=== PATIENT | female | born 1960 | race Caucasian/White ===

== ENCOUNTER 2023-03-30 11:32 | Outpatient (CLI) | payer OTHER, SELFPAY ==
--- NOTE | 2023-03-30 15:51 | ECG_ITS ---
Measurements Intervals [place] Rate: 93 P: 77 KS: 160 QRS: 29 QRSD: 104 T: 41 QT: 360 QTc: 450 Interpretive Statements SINUS RHYTHM LOW QRS VOLTAGE IN PRECORDIAL LEADS BASELINE ARTIFACT- I, II, III, AVR, AVL, AVF BORDERLINE ECG NO PREVIOUS ECG AVAILABLE FOR COMPARISON Electronically Signed On 03-31-2023 6:40:22 CDT by Devendra Cárdenas D.O.
[2023-03-30 16:24] LABS: Hematocrit 38.7 % (37.0-47.0); Hemoglobin 12.6 g/dL (12.0-15.0); Immature Granulocyte Percent A 0.2 % (0-0.5); Mean Corpuscular HGB Conc 32.6 g/dl (32-36); Mean Corpuscular Hemoglobin 29.9 pg (26-34); Mean Corpuscular Volume 91.7 fl (80-100); Mean Platelet Volume 9.2 fl (7.4-10.4); Neutrophils Percent Auto 47.5 % (45.5-73.1); Platelet Count Result 208 k/mm3 (150-375); Red Blood Count 4.22 M/mm3 (4.2-5.4); Red Cell Distribution Width 13.3 % (11.5-14.5); White Blood Count 4.7 K/mm3 (4.5-10.0)
[2023-03-30 16:25] LABS: Basophils Percent Auto 0.4 % (0.2-1.2); Eosinophils Absolute Auto 0.1 K/mm3 (0-0.3); Eosinophils Percent Auto 2.6 % (0-4.4); Immature Granulocyte Absolute 0.01 K/mm3 (0.00-0.031); Lymphocytes Absolute Auto 1.96 K/mm3 (0.9-3.2); Monocytes Absolute Auto 0.3 K/mm3 (0.1-0.6); Monocytes Percent Auto 7.3 % (2.6-8.5); Neutrophils Absolute Auto 2.2 K/mm3 (1.3-6.7)
[2023-03-30 16:37] LABS: Alanine Aminotransferase 30 U/L (6-35); Alkaline Phosphatase 80 U/L (38-126); Amylase 54 U/L (30-110); Aspartate Amino Transferase 24 U/L (14-36); Bilirubin,Total 0.2 mg/dL (0.2-1.3); Lipase 90 U/L (23-300)
[2023-03-30 16:40] LABS: Alanine Aminotransferase 28 U/L (6-35); Albumin Level 3.9 g/dL (3.5-5.1); Alkaline Phosphatase 81 U/L (38-126); Anion Gap 7 mmol/L (8-16); Aspartate Amino Transferase 25 U/L (14-36); Bilirubin,Total 0.2 mg/dL (0.2-1.3); Blood Urea Nitrogen 11 mg/dL (7-17); Calcium 8.5 mg/dL (8.4-10.2); Carbon Dioxide 30 mmol/L (22-30); Chloride 102 mmol/L (98-107); Estimated Glomerular Filt Rate > 60; Glucose 122 mg/dL (65-110); Potassium 3.6 mmol/L (3.4-5.0); Sodium 139 mmol/L (137-145)
== END 2023-03-30 11:33 | disposition home or self-care (01) ==
PROVIDERS: Surgery; PCP Physician Assistant; Visit Provider Obstetrics & Gynecology
DX: Z01.812 Encounter for preprocedural laboratory examination (principal); Z01.810 Encounter for preprocedural cardiovascular examination; D25.9 Leiomyoma of uterus, unspecified; Z72.0 Tobacco use; K80.20 Calculus of gallbladder without cholecystitis without obstruction; Z78.0 Asymptomatic menopausal state
CPT/HCPCS: 36415; 80053; 80076; 82150; 83690; 85025; 86850; 86900; 86901; 93005

== ENCOUNTER 2023-04-04 00:32 | Day surgery (SDC) | payer OTHER, SELFPAY ==
[2023-03-27 16:06] VITALS: BMI 27.8
--- NOTE | 2023-03-27 16:18 | PC.NURSE ---
Report to the Outpatient Waiting Room, entrance under the green pavilion located off [facility], at time 6:00 on date 04/04/23. Planned Procedure Time: 7:30. Time changes happen often and if your time is changed the preop area will call you the afternoon before. - You and your visitor will be asked to self-screen and do not enter if you have any COVID symptoms. - A mask is optional within the hospital at this time. Patients may have clear liquids (water, carbonated beverages, clear teas, apple juice) until 3 hours prior to surgery with (4:30) a maximum of 20 ounces. - No food from midnight until time of surgery Take the following medications with a SIP of water the morning of surgery: ALPRAZOLAM OR DIAZEPAM IF NEEDED DO NOT STOP ANY OF YOUR OTHER PRESCRIPTION MEDICATIONS PRIOR TO SURGERY ?EXCEPT THE FOLLOWING Medications to discontinue per physician: PLAVIX Date to take last dose: 03/29/[address] DIAL REGARDING ASPIRIN AND TORADOL Please no make-up, nail kinyarwanda, hairspray, perfume, deodorant, or body powder the day of surgery. No jewelry (including any body piercings) or valuables the day of surgery, leave them at home. Please take a shower or bath the night before, or the morning of, surgery with an antibacterial soap (HIBICLENS). Wear comfortable, loose fitting clothing. - Jewelry must be removed prior to entering the operating room. Rings and piercings that are not removed may be cut off. - The hospital will not accept responsibility for valuables. - Please leave all valuables, including medications, at home the day of surgery. If you are going home after surgery, a licensed electric train driver must drive you home. - NO public transportation without another adult if you receive anesthesia. - We recommend that an adult stay with you for 24 hours following discharge. - We also recommend that you do not drive, make important decision, drink alcoholic beverages, or take any drugs that were not prescribed by your health care provider for at least 24 hours after your discharge time. Follow any additional instructions given to you from your surgeon. If you or anyone in your household have experienced Covid symptoms in the past week, please notify your surgeon or the nurse liaison at the phone number below for possible testing. Telephone instructions given to PT - PENNY CHAKRABORTY and asked if any additional questions and then verbalized understanding. Patient advised to call surgeon office or pre surgery nurse liaison [phone] if any additional questions.
[2023-04-04] VITALS (9 sets, daily range): BP systolic 112–148; BP diastolic 43–82; PULSE 81–111; RESP 15–20; TEMP 36.2–37.1; O2SAT 92–100
--- NOTE | 2023-04-04 06:51 | WPDANESEPPF ---
Anes - Initial Pre Proc Eval Procedure: Operation Date: 04/04/23 07:30 Proposed Procedures p Total Laparoscopic Hysterectomy with Bilateral Salpingectomy - Tiffany Cohen MD s Laparoscopic Cholecystectomy, Possible Open - Jaleel Iyer DO Date/Time: 04/04/23 06:51 Surgeon: Tiffany Cohen MD Pre Op Diagnosis: uterine leiomyoma, sympt cholelithiasis Patient Data Age: 62 Gender: F Height: 1.64 m Weight: 74.85 kg Allergies Allergy/AdvReac Type Severity Reaction Status Date / Time cephalexin [From Keflex] Allergy Intermediate Nausea Verified 03/27/23 16:00 bacitracin Allergy Unknown Other Verified 03/27/23 16:00 neomycin Allergy Unknown Other Unverified 03/27/23 16:00 polymyxin B Allergy Unknown Other Verified 03/27/23 16:00 meperidine [From Demerol] Allergy Other Verified 03/27/23 16:01 codeine AdvReac Intermediate Nausea Verified 03/27/23 16:01 morphine AdvReac Itching Verified 03/27/23 16:01 [From Duramorph (PF)] Home Medications Medication Instructions Recorded Confirmed Type alprazolam 0.25 mg tablet 0.25 mg PO DAILY 02/21/23 03/27/23 History aspirin 81 mg chewable tablet 81 mg PO DAILY 02/21/23 03/27/23 History clopidogrel 75 mg tablet 75 mg PO DAILY 02/21/23 03/27/23 History cyclobenzaprine 10 mg tablet 10 mg PO TID 02/21/23 03/27/23 History diazepam 5 mg tablet 5 mg PO QHS PRN Anxiety 02/21/23 03/27/23 History duloxetine 30 mg capsule,delayed 60 mg PO HS 02/21/23 03/27/23 History release escitalopram oxalate 20 mg tablet 40 mg PO HS 02/21/23 03/27/23 History ketorolac 10 mg tablet 10 mg PO QID PRN Pain 02/21/23 03/27/23 History lactobacillus combination no.4 3 3,000 mmu cells PO DAILY 02/21/23 03/27/23 History billion cell capsule (Probiotic) levothyroxine 125 mcg capsule 125 mcg PO HS 02/21/23 03/27/23 History multivitamin 1 tablet PO DAILY 02/21/23 03/27/23 History ondansetron 4 mg disintegrating 4 mg PO Q8H 02/21/23 03/27/23 History tablet Patient hx anesthesia problems: none Family hx anesthesia problems: none Results Review: All pre-operative results and documents have been reviewed as part of the pre-operative evaluation. [facility] Past Medical History Medical History Depression Emphysema lung High cholesterol Thyroid disease Surgical History Surgical History S/P S/P endometrial ablation S/P hemorrhoidectomy Family History Family History Mother Family history of lung cancer, Onset Age: 79 Family history of malignant neoplasm of breast in first degree relative, Onset Age: 77 Father Family history of coronary artery disease, Onset Age: 63 Grandparent Family history of coronary artery disease, Onset Age: 50 Unknown Diabetes mellitus Heart disease Hypertension Cancer Other Family history of pancreatic disease Social History Social History Smoking packs per day: 2 Smoking cigarettes per day: 40.0 Years smoked: 40 Smoking pack-years: 80.00 Smoking status: Current every day smoker Tobacco type: cigarettes Second hand tobacco smoke exposure: Yes Alcohol intake: current Drinks per week: 1 Substance use: never Substance use type: does not use Living arrangements: with family Additional living arrangements comments: SON Spiritual care concerns: No Anes - Eval Final PreProcedure Day of Procedure 04/04/23 06:51 Patient weight: overweight Heart: regular rate and rhythm Lungs: clear to auscultation Airway: Mallampati scale class II Neurological: alert and oriented Last oral intake: >/= 8 hours ASA classification: III Emergent: no Anesthetic plan: proceed Anesthesia type and monitoring: general ETT and standard monitoring Results Review: All pre-operative results and documents have been revie
--- NOTE | 2023-04-04 07:15 | PM.IMHP ---
H&P: HPI History of Present Illness Date/Time: 04/04/23 07:15 Chief Complaint: cholelithiasis Narrative: 62 yo woman presents for laparoscopic cholecystectomy. She reports no changes since last seen in office. Review of Systems Review of Systems: All systems reviewed & are unremarkable except as noted in HPI and below Constitutional: Constitutional: Denies chills, Denies fever(s), Denies headache(s) and Denies weight loss Eyes: Eyes: Denies change in vision ENT: Denies dizziness, Denies headache(s), Denies neck mass and Denies throat swelling Cardiovascular: Cardiovascular: Denies chest pain, Denies lightheadedness and Denies dyspnea Respiratory: Respiratory: Denies cough, Denies dyspnea and Denies wheezing Gastrointestinal: Gastrointestinal: Denies abdominal pain, Denies change in bowel habits, Denies nausea and Denies vomiting Genitourinary: Genitourinary: Denies hematuria and Denies dysuria Musculoskeletal: Musculoskeletal: Reports as per HPI Integumentary/Breasts: Skin/Breast: Reports as per HPI Neurologic: Denies dizziness and Denies headache(s) Allergic/Immunologic: Allergic/Immunologic: Denies throat swelling and Denies wheezing [facility] Past Medical History Medical History Depression Emphysema lung High cholesterol Thyroid disease Surgical History Surgical History S/P S/P endometrial ablation S/P hemorrhoidectomy Family History Family History Mother Family history of lung cancer, Onset Age: 79 Family history of malignant neoplasm of breast in first degree relative, Onset Age: 77 Father Family history of coronary artery disease, Onset Age: 63 Grandparent Family history of coronary artery disease, Onset Age: 50 Unknown Diabetes mellitus Heart disease Hypertension Cancer Other Family history of pancreatic disease Social History Social History Smoking packs per day: 2 Smoking cigarettes per day: 40.0 Years smoked: 40 Smoking pack-years: 80.00 Smoking status: Current every day smoker Tobacco type: cigarettes Second hand tobacco smoke exposure: Yes Alcohol intake: current Drinks per week: 1 Substance use: never Substance use type: does not use Living arrangements: with family Additional living arrangements comments: SON Spiritual care concerns: No Meds Home Medications and Allergies Home Medications Medication Instructions Recorded Confirmed Type alprazolam 0.25 mg tablet 0.25 mg PO DAILY 02/21/23 04/04/23 History aspirin 81 mg chewable tablet 81 mg PO DAILY 02/21/23 04/04/23 History clopidogrel 75 mg tablet 75 mg PO DAILY 02/21/23 04/04/23 History cyclobenzaprine 10 mg tablet 10 mg PO TID 02/21/23 04/04/23 History diazepam 5 mg tablet 5 mg PO QHS PRN Anxiety 02/21/23 04/04/23 History duloxetine 30 mg capsule,delayed 60 mg PO HS 02/21/23 04/04/23 History release escitalopram oxalate 20 mg tablet 40 mg PO HS 02/21/23 04/04/23 History ketorolac 10 mg tablet 10 mg PO QID PRN Pain 02/21/23 04/04/23 History lactobacillus combination no.4 3 3,000 mmu cells PO DAILY 02/21/23 04/04/23 History billion cell capsule (Probiotic) levothyroxine 125 mcg capsule 125 mcg PO HS 02/21/23 04/04/23 History multivitamin 1 tablet PO DAILY 02/21/23 04/04/23 History ondansetron 4 mg disintegrating 4 mg PO Q8H 02/21/23 04/04/23 History tablet Allergies Allergy/AdvReac Type Severity Reaction Status Date / Time cephalexin [From Keflex] Allergy Intermediate Nausea Verified 04/04/23 06:58 bacitracin Allergy Unknown Other Verified 04/04/23 06:58 neomycin Allergy Unknown Other Verified 04/04/23 06:58 polymyxin B Allergy Unknown Other Verified 04/04/23 06:58 meperidine [From Demerol] Allergy Other Verified 04/04/23 06:58 codeine AdvReac
--- NOTE | 2023-04-04 07:16 | WPDHPUPDATE1 ---
History and Physical Update Update Date/Time: 04/04/23 07:16 History and Physical has been reviewed, including an updated exam of the patient. There are NO changes in the patient's condition. Risks, benefits, and alternatives have been discussed and questions answered. Patient agrees to proceed with procedure.
--- NOTE | 2023-04-04 07:18 | WPDHPUPDATE1 ---
History and Physical Update Update Date/Time: 04/04/23 07:18 History and Physical has been reviewed, including an updated exam of the patient. There are NO changes in the patient's condition. Risks, benefits, and alternatives have been discussed and questions answered. Patient agrees to proceed with procedure.
[2023-04-04] MEDS: ACETAMINOPHEN 500 MG TABLET 1000 MG PO (07:27)
[2023-04-04] MEDS: KETOROLAC 15 MG/ML VIAL (*BKC) IV PUSH (07:28)
[2023-04-04] MEDS: LACTATED RINGERS 1,000 ML 30 ML IV CONT ×2 (07:29→10:09)
[2023-04-04] MEDS: ceFAZolin 2 GM/D5W 50 ML 2 GM/50 ML BAG IVPB (07:30)
[2023-04-04] MEDS: ceFAZolin SODIUM 1 GM VIAL (09:00)
--- NOTE | 2023-04-04 09:47 | W.PM.PROC2 ---
Procedure Note - Detailed Date of Procedure 04/04/23 Pre-op Diagnosis uterine leiomyoma, sympt cholelithiasis Post-op Diagnosis Same Procedure Performed Total laparoscopic hysterectomy and bilateral salpingo-oophorectomy. Surgeon Tiffany Cohen MD Anesthesia General Indications Pelvic pain, GI symptoms Findings Fibroid uterus, normal-appearing tubes and ovaries Description of Procedure This patient was taken to the operating room. She was prepped and draped in the dorsal lithotomy position after induction of general anesthesia. The uterine manipulator and Arjun cup were placed. This was done with a speculum and tenaculum. The speculum was placed. The cervix was grasped with a tenaculum. The stay sutures were placed at 3 and 9:00 a.m.. The stay sutures of 0 Vicryl were brought through the appropriately sized Arjun cup. The tip of the AJ manipulator was placed in the intrauterine cavity. The cup was slid into place around the cervix and into the fornices. It was locked into place. The sutures were then wrapped around the handle and tied under tension. A 5 mm skin incision was made in the left upper quadrant the abdomen. A 5 mm trocar was inserted into the intrauterine cavity under direct visualization of the scope. Pneumoperitoneum was achieved. A left lower quadrant 11 mm incision was made with scalpel. An 11 mm trocar was inserted into the anterior abdominal cavity under direct visualization the scope. A 5 mm infraumbilical incision was made with a scalpel and a 5 mm trocar was inserted the intra-abdominal cavity under direct visualization of the scope. Bilateral ureteral lysis was performed. This was done from the pelvic brim down to the uterine artery. This was done with careful dissection using sharp and blunt dissection. The infundibulopelvic ligaments were isolated after identification of the ureters bilaterally. These infundibulopelvic ligaments were cauterized and transected with LigaSure cautery. The para ovarian tissue was cauterized and transected with LigaSure cautery bilaterally. Moving around the ovary into the broad ligament the tissue was cauterized transected with LigaSure cautery. The round ligaments were cauterized transected with LigaSure cautery this was all done in a bilateral fashion. In a stepwise fashion along the lateral aspects of the uterus the round ligament and broad ligaments were cauterized transected down to the level of the uterine arteries. A bladder flap was created in the bladder was moved distally to the end of the cervix and over the Arjun cup. The bilateral uterine arteries were cauterized and transected. Colpotomy was then performed. In a circumferential fashion the vagina was transected using unipolar cautery. The incision was made down on the Arjun cup. The uterus, cervix, fallopian tubes and ovaries were taken out through the vagina. A pneumo occluder was placed in the vagina. The vaginal cuff was closed with a 0 V lock suture in a running fashion. The pelvis was irrigated with copious amounts antibiotic irrigation. The ureters were again examined and found to be intact and flowing freely under the uterine arteries into the bladder. The bladder was intact. It was examined directly. The vagina was irrigated with Betadine solution after removal of the Pneumo occluder. The patient was taken to recovery room. She was stable condition. Sponge lap and needle counts were correct x2. Drains Yes Packing No Pathology Yes Complications No immediate complications Condition Stable Disposition Floor
--- NOTE | 2023-04-04 09:51 | W.PM.PROC2 ---
Procedure Note - Detailed Date of Procedure 04/04/23 Pre-op Diagnosis uterine leiomyoma, symptomatic cholelithiasis Post-op Diagnosis Same Procedure Performed Laparoscopic Cholecystectomy Surgeon Jaleel Iyer, DO Anesthesia General and Local (0.5% bupivacaine) Indications This is a 62-year-old woman who presented with intermittent right upper quadrant abdominal pains. She was also experiencing pain radiating to her back. She had not identified any particular foods that were causing this. CT of her abdomen and pelvis had been obtained as an outpatient and this showed evidence of cholelithiasis. She was being seen by Dr. Cohen for uterine fibroids and is planning to undergo laparoscopic hysterectomy. She is requesting laparoscopic cholecystectomy to be done at the same time. Discussed treatment options with the patient and decision was made to proceed with laparoscopic cholecystectomy, possible open. Findings Laparoscopic cholecystectomy was performed. Dr. Cohen completed his portion of the hysterectomy 1st and then I was called in to perform the laparoscopic cholecystectomy. The gallbladder appeared normal in size and contained at least 1 gallstone that was about 1 cm in size. The cystic duct appeared normal in size. No other abnormalities were noted. The gallbladder was removed and sent to the lab for pathology. Please refer to Dr. Cohen's operative report for his portion the procedure. Description of Procedure Procedure as well as risks, benefits, and alternatives were discussed with patient. Written consent was obtained and placed in chart prior to procedure. The patient was brought back to surgical suite. Patient was placed in supine position on operating table. Time-out was done to confirm patient and procedure. Patient was then intubated by the anesthesia department. Abdomen was prepped and draped in sterile fashion using chlorhexidine prep. The patient already had [address] from her laparoscopic hysterectomy. Please refer to Dr. Cohen's operative report for his details. The infraumbilical port was used and then 3 new ports were placed to complete the cholecystectomy. 0.5% bupivacaine with epinephrine was infiltrated at each site of incision. The patient was placed in reverse Trendelenburg position and rotated slightly to the left. An 11 millimeter incision was made in the subxiphoid region, and an 11 millimeter trocar was inserted under direct visualization. Two 5 millimeter incisions were made in the right upper quadrant, and two 5 millimeter trocars were inserted under direct visualization. The gallbladder was identified and grasped at the fundus and retracted superiorly. It was then grasped at the infundibulum retracted laterally. Careful dissection around the neck of the gallbladder was performed using blunt dissection with a [place] grasper and hook electrocautery. The cystic duct was identified, and a window was created behind it. The cystic artery was also identified and a window was created behind it. The critical view of safety was identified, visualizing the cystic duct running directly into the neck of the gallbladder, and the cystic artery running directly into the wall of the gallbladder. A 5 millimeter clip inpatient pharmacist was then used to place 2 clips proximally and 1 clip distally on both the cystic duct and cystic artery. They were then both transected using endoscopic scissors. Once safely away from the jenn hepatitis, the gallbladder was dissected free from the liver bed using hook electrocautery. Hemostasis was achieved along the way. The gallbladder was removed completely and then removed through the subxiphoid port. The liver bed was then inspected. Hemostasis appeared adequate, and our clips appeared secure. The area was gently irrigated with sterile saline. No other abnormalities were seen. The patient was flattened out in bed, and 1 final inspection was made around the abdominal cavity. The subxiphoid po
[2023-04-04] MEDS: DEXTROSE 5%/0.45% SOD CHL 1,000 ML 125 ML IV CONT (11:45)
--- NOTE | 2023-04-04 11:48 | OBPPTRN ---
1130 Patient transferred to post room #289 via bed. Oriented to unit, room, information board, admission packet and security measures. Patient verbalizes understanding.
[2023-04-04] MEDS: CYCLOBENZAPRINE HCL 10 MG TABLET PO (15:46)
[2023-04-04] MEDS: KETOROLAC 30 MG/ML VIAL (*BKC) IV PUSH (15:47)
--- NOTE | 2023-04-04 18:46 | PC.NURSE ---
1721 Dr. Cohen stated that the pt could drive when she is pain free. This was reported to the pt. She V/U'd.
== END 2023-04-04 17:55 | disposition home or self-care (01) ==
LOC: ANHSURGERY 09:50 → ANHOB2 11:27
PROVIDERS: Surgery; PCP Physician Assistant; Visit Provider Obstetrics & Gynecology
PROC: 0UT9FZZ Resection of Uterus, Via Natural or Artificial Opening With Percutaneous Endoscopic Assistance (ICD-10-PCS; CPT 58571; principal; 2023-04-04 07:30)
PROC: 0FT44ZZ Resection of Gallbladder, Percutaneous Endoscopic Approach (ICD-10-PCS; CPT 47562; 2023-04-04 07:30)
DX: K80.11 Calculus of gallbladder with chronic cholecystitis with obstruction (principal); D25.0 Submucous leiomyoma of uterus; N72 Inflammatory disease of cervix uteri; N83.8 Other noninflammatory disorders of ovary, fallopian tube and broad ligament; N83.292 Other ovarian cyst, left side; N83.291 Other ovarian cyst, right side; E78.00 Pure hypercholesterolemia, unspecified; E07.9 Disorder of thyroid, unspecified; J43.9 Emphysema, unspecified; F32.A Depression, unspecified; Z79.82 Long term (current) use of aspirin; Z79.02 Long term (current) use of antithrombotics/antiplatelets; F17.210 Nicotine dependence, cigarettes, uncomplicated
CPT/HCPCS: 58571; 47562; 36415; 80053; 80076; 82150; 83690; 85025; 86850; 86900; 86901; 88304; 88307; 93005; 99199; A9270; J0690; J1100; J1885; J2250; J2405; J2704; J3010; J7030; J7120